=== PATIENT | male | born 1950 | race Caucasian/White ===

== ENCOUNTER → 2022-04-07 | Outpatient (CLI) | payer MEDICARE, OTHER, SELFPAY | END | disposition home or self-care (01) | PROVIDERS: PCP Student in an Organized Health Care Education/Training Program; Visit Provider Student in an Organized Health Care Education/Training Program | DX: U07.1 COVID-19 (principal) | CPT/HCPCS: 87635; C9803; U0003; U0005 ==

== ENCOUNTER 2022-04-10 15:10 | Outpatient (CLI) | payer MEDICARE, OTHER, SELFPAY ==
[2022-04-10 15:28] VITALS: BP 149/83; PULSE 69; RESP 18; TEMP 36.6; O2SAT 98; BMI 37.5
[2022-04-10] MEDS: BEBTELOVIMAB 175 MG/2 ML VIAL IV (15:44)
[2022-04-10] MEDS: 0.9% Saline Lock 10 ML Syringe IV ×2 (15:44→15:47)
[2022-04-10 16:15] VITALS: BP 132/71; PULSE 65; RESP 18; TEMP 36.6; O2SAT 95
[2022-04-10 16:40] VITALS: BP 126/78; PULSE 64; RESP 18; TEMP 36.3; O2SAT 98
== END 2022-04-10 16:44 | disposition home or self-care (01) ==
LOC: MS3OUT 15:12 → MS2 15:13
PROVIDERS: PCP Student in an Organized Health Care Education/Training Program; Referring Provider Nurse Practitioner Adult Health; Visit Provider Nurse Practitioner Adult Health
DX: U07.1 COVID-19 (principal)
CPT/HCPCS: M0222; Q0222; A4216